=== PATIENT | male | born 1955 | race African-American/Black ===

== ENCOUNTER 2018-07-22 07:07 | Emergency (ER) | payer OTHER ==
[2018-07-22] MEDS ORDERED: Albuterol Sulfate 2.5 mg/3 ml Neb ONE (07:20)
[2018-07-22] MEDS ORDERED: Magnesium 2 GM/50 ML 2 GM in Premix Bag 1 BAG IVPB SCH (07:30)
[2018-07-22 07:39] LABS: Actual Bicarbonate (HCO3a) 25.9 mEq/L (22-28); Analyzer IN Cardio ER; Base Excess (BEa) 0.1 mEq/L (-2.0 to +3.0); CO2 Tension 46.2 mmHg (35.0-45.0); Calcium, Ionized 1.17 mmol/L (1.12-1.30); Carboxyhemoglobin (COHb) 0.5 gm% (0.0-3.0); Hemoglobin (Hb) 15.3 g/dL (14.0-18.0); O2 Tension (PaO2) 74.7 mmHg (> 80.0); Potassium - ABG Lab 3.78 mmol/L (3.70-5.30); pH, Arterial 7.37 (7.35-7.45)
[2018-07-22 07:40] LABS: Puncture Site RRA
[2018-07-22 07:49] LABS: #Basophils 0.1 thou/uL (0.0-0.2); #Eosinphils 0.2 thou/uL (0.0-0.7); #Lymphocytes 2.5 thou/uL (1.20-3.40); #Monocytes 0.9 thou/uL (0.11-0.59); %Basophils 0.6 % (0.0-1.0); %Eosinophils 2.7 % (0.0-10.0); %Monocytes 10.5 % (0.0-10.0); %Neutrophils 57.2 % (42.0-75.0); Hemoglobin 14.8 g/dL (14.0-18.0); Mean Corpuscular HGB CONC 32.2 g/dL (32.0-36.0); Mean Corpuscular Hemoglobin 29.4 pg (27.0-31.0); Mean Corpuscular Volume 91.2 fL (78.0-98.0); Mean Platelet Volume 8.3 fL (7.4-10.4); Platelet Count 215 thou/uL (130-400); RBC Distribution Width 12.7 % (11.5-14.5); Red Blood Cell (RBC) Count 5.03 mill/uL (4.70-6.10); White Blood Cell (WBC) Count 8.8 thou/uL (4.8-10.8)
[2018-07-22 08:09] LABS: ALT (SGPT) 12 U/L (8-55); AST (SGOT) 16 U/L (5-34); Albumin 4.1 g/dL (3.4-4.8); Alkaline Phosphatase 56 U/L (40-150); Anion Gap 12 mmol/L (10-20); BUN (Urea Nitrogen) 13 mg/dL (8.4-25.7); Bilirubin, Total 1.1 mg/dL (0.2-1.2); CK (CPK) 186 U/L (30-200); Calc. Creatinine Clearance 0 mL/min (70-130); Calcium 9.3 mg/dL (7.8-10.44); Carbon Dioxide 26 mmol/L (23-31); Chloride 104 mmol/L (98-107); Estimated GFR-MDRD 79; Globulin 2.9 g/dL (2.4-3.5); Glucose 105 mg/dL (80-115); Lipase 12 U/L (8-78); Sodium 138 mmol/L (136-145)
[2018-07-22 08:12] LABS: CKMB 2.7 ng/mL (0-6.6); Troponin I Less than 0.010 ng/mL (< 0.028)
--- NOTE | 2018-07-22 09:11 | RAD ---
CHEST UPRIGHT PORTABLE 1 VIEW: Date: 07/22/18 HISTORY: 63-year-old male with history of dyspnea and shortness of breath. History of emphysema and COPD. COMPARISON: 05/27/16. FINDINGS: There are very extensive bullous emphysema changes noted bilaterally with almost the entire left ches t being filled with a huge bullae from the apex down to the left hemidiaphragm with some depression o f the left hemidiaphragm, but this is stable from 05/27/16. Very large bullae in the right upper lobe . Interstitial and reticulonodular parenchymal changes in the right lower lobe, but this does not david ear significantly changed from 2016. Heart size is normal. IMPRESSION: Huge bullae essentially replacing the entire left chest with some hyperinflation, stable. Large bulla e in the right upper lobe as well as interstitial and reticulonodular parenchymal changes in the mid and lower right lung, but this is also stable from 05/27/16. Overall appearance has not significantly changed from the 05/27/16 study. POS: LIN
--- NOTE | 2018-07-25 13:49 | EKG ---
Test Reason : Blood Pressure : / mmHG Vent. Rate : 072 BPM Atrial Rate : 072 BPM P-R Int : 100 ms QRS Dur : 060 ms QT Int : 372 ms P-R-T Axes : 070 053 -78 degrees QTc Int : 407 ms Sinus rhythm with short NH with frequent , and consecutive Premature ventricular complexes and Fusion complexes T wave abnormality, consider inferior ischemia Abnormal ECG Confirmed by VIKKI BARRIOS, JENNIFER (12), state editor IMMANUEL ESPINOSA ([id number]) on 07/25/2018 1:48:23 PM Referred By: Confirmed By:JENNIFER FLOREZ MD
== END 2018-07-22 09:56 | disposition home or self-care (01) ==
LOC: ERS 07:07
DX: J44.1 Chronic obstructive pulmonary disease with (acute) exacerbation (principal); E87.6 Hypokalemia; F41.9 Anxiety disorder, unspecified; I10 Essential (primary) hypertension; Z87.891 Personal history of nicotine dependence
CPT/HCPCS: 36415; 71045; 80053; 82553; 82805; 83605; 83690; 83880; 84484; 85025; 87040; 93005; 94644; 96365; 96366; 96367; J1956; J7611; J7620

== ENCOUNTER 2018-08-02 11:09 | Outpatient (CLI) | payer OTHER ==
--- NOTE | 2018-08-02 13:46 | RAD ---
PA AND LATERAL CHEST: History: Dyspnea. Comparison: 05-25-17 FINDINGS: Heart size is within normal limits. Bullous emphysematous changes are seen. A large bulla basically i nvolves the entire left hemithorax and prominent bullous changes of the right upper lobe. These antonio es appear stable. IMPRESSION: Stable changes of bullous emphysema. POS: C
== END 2018-08-02 11:10 | disposition home or self-care (01) ==
LOC: RAD 11:09
PROVIDERS: ATTEND Internal Medicine Pulmonary Disease
DX: R06.00 Dyspnea, unspecified (principal)
CPT/HCPCS: 71046

== ENCOUNTER 2018-11-30 15:06 | Inpatient (IN) | payer OTHER ==
[2018-11-30] MEDS ORDERED: KETAMINE 100 MG/ML (5ML VIAL) ONE (15:12)
[2018-11-30] MEDS ORDERED: Albuterol Sulfate 2.5 mg/0.5 ml Neb ONE ×7 (15:28→15:29)
[2018-11-30 15:30] LABS: Hemoglobin 14.5 g/dL (14.0-18.0); Mean Corpuscular HGB CONC 30.9 g/dL (32.0-36.0); Mean Corpuscular Hemoglobin 29.4 pg (27.0-31.0); Mean Platelet Volume 7.4 fL (7.4-10.4); Platelet Count 381 thou/uL (130-400); RBC Distribution Width 12.5 % (11.5-14.5); Red Blood Cell (RBC) Count 4.93 mill/uL (4.70-6.10); White Blood Cell (WBC) Count 19.5 thou/uL (4.8-10.8)
[2018-11-30] MEDS ORDERED: Albuterol Sulfate 2.5 mg/3 ml Neb ONE (15:30)
[2018-11-30 15:40] LABS: Actual Bicarbonate (HCO3a) 20.7 mEq/L (22-28); Analyzer IN Cardio ER; Base Excess (BEa) -3.9 mEq/L (-2.0 to +3.0); CO2 Tension 36.7 mmHg (35.0-45.0); Calcium, Ionized 1.11 mmol/L (1.12-1.30); Carboxyhemoglobin (COHb) 0.5 gm% (0.0-3.0); Hemoglobin (Hb) 14.2 g/dL (14.0-18.0); O2 Tension (PaO2) 78.5 mmHg (> 80.0); Potassium - ABG Lab 4.03 mmol/L (3.70-5.30); Puncture Site RRA; pH, Arterial 7.37 (7.35-7.45)
[2018-11-30 15:41] LABS: ALV-art Gradient 232.125 (0-20)
[2018-11-30 15:42] LABS: Band 11 % (5-11); Lymphocytes 7 % (21-51); MDiff Complete? YES; Monocytes 4 % (0-10); Neutrophil 75 % (42-75); Platelet Morphology Comment Appears Adequate; RBC Morphology Normal; Reactive Lymphocytes 1 % (0-10)
[2018-11-30] MEDS ORDERED: cefTRIAXone\\ROCEPHIN 1 GM VIAL ONE (15:55)
[2018-11-30] MEDS ORDERED: Azithromycin 500 MG VIAL ONE (15:55)
[2018-11-30] MEDS ORDERED: Acetaminophen 500 MG TAB ONE (15:55)
--- NOTE | 2018-11-30 16:00 | RAD ---
RADIOGRAPH CHEST 1 VIEW: Date: 11/30/18 Time: 1539 HOURS HISTORY: 63-year-old male with dyspnea. COMPARISON: 08/02/18. FINDINGS: There is almost complete absence of left pulmonary parenchyma. Almost the entire left hemithoracic ca vity has been replaced by a single, extremely large bulla. This appears unchanged since 06/04/13. There is a very large bulla replacing the right upper and mid lung zones. There are mild nodular-inte rstitial infiltrates throughout the remaining right mid and lower lung zones. The nodularity appears slightly more prominent on the current study compared to 07/23/18. It is uncertain whether this is ac tual or technical. The cardiomediastinal silhouette is narrowed by the severe bullous disease. IMPRESSION: 1. Very severe paraseptal emphysema: extremely large left bulla occupying almost the entire left hem ithoracic cavity, with very little left pulmonary parenchymal tissue remaining; and very large bulla replacing the right upper and mid lung zones. 2. Questionable interval worsening of nodular interstitial densities in the remaining right mid and lower pulmonary tissue. Consider CT for further evaluation. JN [] POS: TPC
[2018-11-30 16:10] LABS: ALT (SGPT) 14 U/L (8-55); AST (SGOT) 16 U/L (5-34); Albumin 3.9 g/dL (3.4-4.8); Alkaline Phosphatase 56 U/L (40-150); Anion Gap 18 mmol/L (10-20); BUN (Urea Nitrogen) 14 mg/dL (8.4-25.7); Bilirubin, Total 1.3 mg/dL (0.2-1.2); CK (CPK) 99 U/L (30-200); Calc. Creatinine Clearance 0 mL/min (70-130); Carbon Dioxide 19 mmol/L (23-31); Chloride 102 mmol/L (98-107); Estimated GFR-MDRD 81; Globulin 3.5 g/dL (2.4-3.5); Glucose 134 mg/dL (80-115); Potassium 5.2 mmol/L (3.5-5.1); Protein, Total 7.4 g/dL (5.8-8.1); Sodium 134 mmol/L (136-145)
[2018-11-30] MEDS ORDERED: Ondansetron PF 4 MG/2 ML Vial IVP PRN (17:04)
[2018-11-30] MEDS ORDERED: Acetaminophen 325 MG TAB PO PRN (17:04)
[2018-11-30] MEDS ORDERED: Acetaminophen 650 MG Suppository PR PRN (17:04)
--- NOTE | 2018-11-30 18:37 | HP ---
PRIMARY CARE PROVIDER: Kosta Chang MD CHIEF COMPLAINT: Shortness of breath. HISTORY OF PRESENT ILLNESS: Mr. Stovall is a pleasant 63-year-old gentleman, who was seen at [facility] on November 30, 2018. He reports that over the last 2 or 3 weeks, he has been having flu-like symptoms, feeling weak. He also describes shortness of breath that has been progressively getting worse. He reports shortness of breath that is worse with exertion. Shortness of breath is accompanied by mucus. He also spiked a fever and had temperature of 100.4 degrees Fahrenheit today. EMS was called. The patient received Solu-Medrol, magnesium and nitrates and brought to the emergency room. His oxygen saturations were reportedly 87% on nebulizer. REVIEW OF SYSTEMS: All other systems reviewed and found to be negative. PAST MEDICAL HISTORY: Hypertension, chronic obstructive pulmonary disease, emphysema followed by Dr. Levi, sciatica, back problems, and borderline diabetes. PAST SURGICAL HISTORY: Extra digit removal from both hands and feet. PSYCHIATRIC HISTORY: Anxiety. SOCIAL HISTORY: The patient is a former smoker. He denies alcohol use or recreational drug use. FAMILY HISTORY: Reports several family members with coronary artery disease. CODE STATUS: I discussed his code status. He is full code. ALLERGIES: PENICILLIN, SULFA, AND TYLENOL NO.3. CURRENT MEDICATIONS: These will need to be reviewed. The patient does not recall the names of his medications. In the past, he was on amlodipine, Symbicort, Mucinex, prednisone, and albuterol sulfate. PHYSICAL EXAMINATION: GENERAL: On examination, Mr. Stovall is awake and alert, in mild respiratory distress, currently on BiPAP machine. VITAL SIGNS: Blood pressure is 96/63, pulse 110, respiratory rate 18, and oxygen saturation 94% on BiPAP. T-max in the emergency room was 101.9 degrees Fahrenheit rectally. EYES: No scleral icterus, no conjunctival pallor. ENT: Moist mucosal membranes. NECK: Supple, nontender, trachea is midline. RESPIRATORY: Accessory muscles of breathing are active. Chest wall movements are symmetric bilaterally. He has markedly diminished air entry bilaterally. CARDIOVASCULAR: S1 and S2 are heard, regular and tachycardic. Peripheral pulses palpable. ABDOMEN: Soft, nontender, bowel sounds heard, no hepatomegaly, no splenomegaly. NEUROLOGIC: Cranial nerves 2 through 12 are intact. SKIN: Dry flaky skin over both lower extremities. LYMPHATIC: No cervical lymphadenopathy. PSYCHIATRIC: The patient appears anxious, oriented to person, place, and time. LABORATORY DATA: Mr. Stovall' labs and investigations were reviewed. I reviewed his electrocardiogram, which shows sinus tachycardia, no ST changes to suggest an acute coronary syndrome. I also reviewed his chest x-ray, which shows large bilateral bullae. He has leukocytosis with 19,500 white cells, of which 75% are neutrophils, normal hemoglobin, normal platelet count. Hyponatremia with sodium 134, hyperkalemia with potassium 5.2, decreased carbon dioxide of 19, elevated lactic acid level of 4.6, elevated total bilirubin of 1.3, and normal troponin-I. BNP is normal. ASSESSMENT AND PLAN: Mr. Stovall is a pleasant 63-year-old gentleman, who was seen at [facility] on November 30, 2018. His problem list includes: 1. Acute on chronic hypoxic respiratory failure: Mr. Stovall is presenting with acute on chronic hypoxic respiratory failure, most likely secondary to chronic obstructive pulmonary disease exacerbation. An infectious component cannot be ruled out, given the fact that he also meets the criteria for sepsis. He will be admitted to the hospital for further management. He is currently on a BiPAP machine. Pulmonology Service will be consulted. 2. Sepsis: Mr. Stovall' presentation meets the criteria for sepsis, most likely respiratory source, either viral or bacterial. We will check influenza screen. We will also start him on empiric antibiotics in the form of ceftriaxone and azithromycin. 3. Hyponatremia: Mild, we will recheck. 4. Hyperkalemia: Mild, the patient will receive beta agonist nebulizers. We will recheck his potassium level. 5. Hypertension: We will resume home antihypertensives once clarified, we will monitor vital signs and titrate antihypertensives as needed. Many thanks for allowing me to participate in your patient's care. Please feel free to contact me with any questions or concerns. LEVEL OF RISK: High. LEVEL OF COMPLEXITY: High. Job ID: [id number]
[2018-11-30 19:36] LABS: CKMB 2.4 ng/mL (0-6.6)
[2018-11-30 19:39] LABS: Lactic Acid 2.9 mmol/L (0.5-2.2)
[2018-11-30 20:17] VITALS: BMI 23.6
[2018-11-30] MEDS: methylPREDNISolone Sod Succ 40 MG VIAL IVP SCH ×2 (20:19→23:52)
--- NOTE | 2018-11-30 23:20 | CON ---
DATE OF CONSULTATION: CONSULTING PHYSICIAN: Dr. Lemus. REASON FOR CONSULTATION: COPD exacerbation. HISTORY OF PRESENT ILLNESS: The patient is a 63-year-old male, who has a history of severe emphysema, oxygen and prednisone dependent. He became sick about 2 weeks ago. About a week ago, he got a prescription for antibiotics from his primary care doctor. Despite that, he has become progressively short of breath and he presented to the ER in acute on chronic respiratory failure. He was put on BiPAP and he feels much better. He is able to converse through the BiPAP mask without much difficulty. PAST MEDICAL HISTORY: 1. Hypertension. 2. COPD. PAST SURGICAL HISTORY: 1. Six digit removal of upper and lower extremities. 2. Colon polyp resection. SOCIAL HISTORY: Formerly smoked a half pack per day for many years, but quit about 7 years ago. Does not use illicit drugs currently, but does have a remote history of crack cocaine use. FAMILY MEDICAL HISTORY: Unremarkable. ALLERGIES: PENICILLIN AND SULFA. MEDICATIONS: Prior to admission he is taking, 1. Prednisone 10 mg a day. 2. Ciprofloxacin 500 mg twice daily. 3. Symbicort 160/4.5 two puffs twice daily. 4. Amlodipine 10 mg daily. 5. Albuterol as needed. REVIEW OF SYSTEMS: Remarkable for almost absent left lung for bullous lung disease and absent right upper lobe from bullous lung disease. He has chronic dyspnea. He has had no fever or chills. He has had cough which is slightly productive of yellow sputum. No nausea or vomiting. No chest pain. No hemoptysis, melena, hematochezia, hematuria, or dysuria. No numbness or tingling in extremities. PHYSICAL EXAMINATION: VITAL SIGNS: Heart rate in the 90s, blood pressure 94/46, respiratory rate 20, O2 saturation 95% on BiPAP. Currently, he is resting comfortably on BiPAP. HEENT: Pupils are reactive. Sclerae anicteric. Oropharynx clear. NECK: No JVD. LUNGS: He has a barrel chest. He has almost absent air movement on the left chest. He has diminished breath sounds in the right upper lobe. He has some wheezing in the right lower lobe. CARDIOVASCULAR: S1 and S2 regular without audible murmur. ABDOMEN: Soft, nontender, and nondistended. EXTREMITIES: No clubbing or cyanosis. He has trace edema in his pedal area. NEUROLOGIC: Grossly intact throughout. LABORATORY DATA: White blood cell count 19.5, hematocrit 46.8, and platelet count 381 with 75% neutrophils, 11% bands. PH is 7.37, pCO2 of 36, pO2 of 78 on BiPAP 12/6. Sodium 134, potassium 5.2, chloride 102, CO2 of 19, BUN 14, creatinine 1.1, glucose 134. Lactate was initially 4.6. BNP 19. His chest x-ray shows almost absent left lung except for bullous disease. He has a huge bullous lesion in the right upper lobe. He has compression atelectasis in the right lower lobe. ASSESSMENT: 1. Chronic obstructive pulmonary disease exacerbation. 2. Acute on chronic hypoxic respiratory failure. 3. Neuromuscular weakness. PLAN: I have reviewed the orders and agree with the plans for antibiotics, nebulization therapy, IV steroids, and the BiPAP. I will be happy to follow along with you. TIME SPENT: Total critical care time on this patient, 35 minutes. Job ID: [id number]
[2018-12-01 05:28] LABS: Anion Gap 16 mmol/L (10-20); BUN (Urea Nitrogen) 17 mg/dL (8.4-25.7); Calc. Creatinine Clearance 58 mL/min (70-130); Calcium 9.4 mg/dL (7.8-10.44); Carbon Dioxide 23 mmol/L (23-31); Chloride 102 mmol/L (98-107); Estimated GFR-MDRD 71; Glucose 173 mg/dL (80-115); Potassium 5.6 mmol/L (3.5-5.1); Sodium 135 mmol/L (136-145)
[2018-12-01 05:32] LABS: Band 24 % (5-11); Hemoglobin 13.7 g/dL (14.0-18.0); Lymphocytes 5 % (21-51); MDiff Complete? YES; Mean Corpuscular HGB CONC 31.3 g/dL (32.0-36.0); Mean Corpuscular Hemoglobin 30.1 pg (27.0-31.0); Mean Corpuscular Volume 96.2 fL (78.0-98.0); Mean Platelet Volume 7.9 fL (7.4-10.4); Monocytes 5 % (0-10); Neutrophil 66 % (42-75); Platelet Count 303 thou/uL (130-400); Platelet Morphology Comment Appears Adequate; RBC Distribution Width 12.5 % (11.5-14.5); RBC Morphology Normal; Red Blood Cell (RBC) Count 4.55 mill/uL (4.70-6.10); White Blood Cell (WBC) Count 18.8 thou/uL (4.8-10.8)
[2018-12-01] MEDS: methylPREDNISolone Sod Succ 40 MG VIAL IVP SCH ×3 (06:05→18:02)
[2018-12-01] MEDS: Enoxaparin Sodium 30 MG/0.3 ML SYRINGE SC SCH (08:57)
[2018-12-01] MEDS ORDERED: Acetaminophen 325 MG TAB PO PRN (09:53)
[2018-12-01] MEDS ORDERED: Acetaminophen 650 MG Suppository PR PRN (09:54)
--- NOTE | 2018-12-01 10:21 | PRG ---
DATE OF SERVICE: 12/01/2018 SUBJECTIVE: The patient is doing about the same. OBJECTIVE: VITAL SIGNS: Temperature is 98.7, pulse 95, blood pressure 134/81, and O2 saturation 94% on the BiPAP. HEENT: Unremarkable. NECK: No adenopathy. No JVD. No bruits. LUNGS: Almost absent breath sounds on the left, clear on the right base. CARDIAC: S1 and S2. Regular. ABDOMEN: Soft. EXTREMITIES: No edema. LABORATORY DATA: White blood cell count 18.8, hematocrit 43.8, and platelet count 303. Sodium 135, potassium 5.6, chloride 102, CO2 of 23, BUN 17, creatinine 1.2, and glucose 173. ASSESSMENT: 1. Acute hypoxic respiratory failure with chronic obstructive pulmonary disease exacerbation requiring mechanical ventilation. 2. Mild hyperkalemia. PLAN: 1. The patient will continue antibiotics, steroids, and nebulization treatments. 2. Try to wean off BiPAP as tolerated. 3. Add mucolytic therapy. Job ID: [id number]
[2018-12-01] MEDS ORDERED: Insulin Regular 300 UNITS/3 ML VIAL IVP SCH (14:15)
[2018-12-01] MEDS ORDERED: Dextrose 50% Abboject 50 ML SYRINGE SLOW IVP SCH (14:30)
[2018-12-01] MEDS: cefTRIAXone\\ROCEPHIN 1 GM in Sodium Chloride 0.9% 100 ML IVPB SCH (15:15)
[2018-12-01] MEDS: Azithromycin 500 MG in Sodium Chloride 0.9% 250 ML 250 ML IVPB SCH (18:02)
--- NOTE | 2018-12-01 18:18 | PDOC.PN ---
- Subjective Encounter Start Date: 12/01/18 Encounter Start Time: 11:40 Pt seen for followup re: acute on chronic hypoxic respiratory failure. says he feels slightly better. - Objective Resuscitation Status - Order Detail: 11/30/18 17:04 Resuscitation Status Routine Resuscitation Status: FULL: Full Resuscitation Discussed with: melvin STOKES Reviewed: Yes Vital Signs & Weight: Vital Signs (12 hours) Temp Pulse Resp Pulse Ox 12/01/18 15:02 94 12/01/18 15:01 99 23 H 95 12/01/18 11:29 79 12/01/18 11:26 97 30 H 94 L 12/01/18 11:00 98.7 F 12/01/18 08:51 96 12/01/18 08:30 89 95 12/01/18 08:29 88 18 95 12/01/18 07:23 96 12/01/18 07:00 98.7 F Weight Weight 151 lb Most Recent Monitor Data Heart Rate from ECG 97 NIBP 131/105 NIBP BP-Mean 113 Respiration from ECG 18 SpO2 89 I&O: 11/30/18 12/01/18 12/02/18 06:59 06:59 06:59 Intake Total 15 350 Output Total 575 850 Balance -560 -500 Result Diagrams: 12/01/18 04:17 12/01/18 04:17 Additional Labs: Accuchecks 12/01/18 10:29 POC Glucose 161 H EKG Reviewed by me: Yes (Tele: NSR) Phys Exam - Physical Examination Constitutional: NAD HEENT: moist MMs, sclera anicteric, oral pharynx no lesions, 2+ tonsils Neck: no nodes, no JVD, supple, full ROM Respiratory: wheezing present Cardiovascular: RRR, no rub S1, S2 Gastrointestinal: soft, non-tender, no distention, positive bowel sounds Neurological: moves all 4 limbs Psychiatric: normal affect, A&O x 3 Dx/Plan (1) Acute on chronic respiratory failure with hypoxia Code(s): J96.21 - ACUTE AND CHRONIC RESPIRATORY FAILURE WITH HYPOXIA Status: Acute Comment: secondary to COPD exacerbation, improving (2) COPD exacerbation Code(s): J44.1 - CHRONIC OBSTRUCTIVE PULMONARY DISEASE W (ACUTE) EXACERBATION Status: Acute Comment: continue oxygen, steroids, bronchodilators and antibiotics. (3) Hyperkalemia Code(s): E87.5 - HYPERKALEMIA Status: Acute Comment: administer kayexalate, humulin R (followed by D50 amp) (4) Hyponatremia Code(s): E87.1 - HYPO-OSMOLALITY AND HYPONATREMIA Status: Acute Comment: mild, improving (5) Sepsis Code(s): A41.9 - SEPSIS, UNSPECIFIED ORGANISM Status: Ruled-out Comment: no clear infectious etiology - Plan * . Review of Systems - Review of Systems Constitutional: negative: fever, chills, sweats, weakness, malaise Respiratory: SOB with Excertion, Wheezing. negative: Cough, Shortness of Breath , Pleuritic Pain Cardiovascular: negative: chest pain, palpitations, orthopnea, paroxysmal nocturnal dyspnea, edema, light headedness Gastrointestinal: negative: Nausea, Vomiting, Abdominal Pain, Diarrhea, Constipation, Melena, Hematochezia Genitourinary: negative: Dysuria, Frequency, Incontinence, Hematuria, Retention - Medications/Allergies Allergies/Adverse Reactions: Allergies Allergy/AdvReac Type Severity Reaction Status Date / Time acetaminophen Allergy Verified 11/30/18 20:12 [From Tylenol-Codeine #3] codeine Allergy Verified 11/30/18 20:12 [From Tylenol-Codeine #3] Penicillins Allergy Verified 08/26/13 16:31 quetiapine [From Seroquel] Allergy Verified 11/30/18 20:12 Sulfa (Sulfonamide Allergy Verified 08/26/13 16:31 Antibiotics) Medications: Current Medications Acetaminophen (Tylenol) 650 mg PO Q4H PRN PRN Reason: Headache/Fever/Mild Pain (1-3) Acetaminophen (Tylenol) 650 mg NH Q4H PRN PRN Reason: Headache/Fever/Mild Pain (1-3) Albuterol/Ipratropium (Duoneb) 3 ml NEB [id number] SUJEY Last Admin: 12/01/18 15:01 Dose: 3 ml Enoxaparin Sodium (Lovenox) 30 mg SC 0900 [facility] Last Admin: 12/01/18 08:57 Dose: 30 mg Guaifenesin/Dextromethorphan (Mucinex Dm) 1 tab PO Q12HR SUJEY Azithromycin 500 mg/ Sodium (Chloride) 250 mls @ 250 mls/hr IVPB 1700 [facility] Last Admin: 12/01/18 18:02 Dose: Not Given Ceftriaxone Sodium 1 gm/ (Sodium Chloride) 100 mls @ 200 mls/hr IVPB 1600 [facility] Last Admin: 12/01/18 15:15 Dose: 100 mls Methylprednisolone Sodium Succinate (Solu-Medrol) 40 mg IVP Q6HR SUJEY Last Admin: 12/01/18 18:02 Dose: Not Given Ondansetron HCl (Zofran) 4 mg IVP Q6H PRN PRN Reason: Nausea/Vomiting Pantoprazole Sodium (Protonix) 40 mg PO DAILY [facility] Last Admin: 12/01/18 08:57 Dose: 40 mg Sodium Chloride (Flush - Normal Saline) 10 ml IVF Q12HR [facility] Last Admin: 12/01/18 08:59 Dose: 10 ml Sodium Chloride (Flush - Normal Saline) 10 ml IVF PRN PRN PRN Reason: Saline Flush Last Admin: 12/01/18 06:05 Dose: 10 ml
[2018-12-01] MEDS: guaiFENesin/DM ER PO SCH (20:38)
[2018-12-02] MEDS: methylPREDNISolone Sod Succ 40 MG VIAL IVP SCH ×5 (00:38→23:39)
[2018-12-02 05:38] LABS: #Lymphocytes 0.5 thou/uL (1.20-3.40); #Monocytes 1.1 thou/uL (0.11-0.59); #Neutrophils 16.3 thou/uL (1.40-6.50); %Basophils 0.1 % (0.0-1.0); %Eosinophils 0.1 % (0.0-10.0); %Neutrophils 90.9 % (42.0-75.0); Hemoglobin 12.4 g/dL (14.0-18.0); Mean Corpuscular HGB CONC 31.5 g/dL (32.0-36.0); Mean Corpuscular Hemoglobin 30.1 pg (27.0-31.0); Mean Corpuscular Volume 95.6 fL (78.0-98.0); Mean Platelet Volume 7.8 fL (7.4-10.4); Platelet Count 304 thou/uL (130-400); RBC Distribution Width 12.6 % (11.5-14.5); Red Blood Cell (RBC) Count 4.12 mill/uL (4.70-6.10); White Blood Cell (WBC) Count 17.9 thou/uL (4.8-10.8)
[2018-12-02 05:59] LABS: Anion Gap 15 mmol/L (10-20); BUN (Urea Nitrogen) 22 mg/dL (8.4-25.7); Calc. Creatinine Clearance 68 mL/min (70-130); Calcium 9.7 mg/dL (7.8-10.44); Carbon Dioxide 25 mmol/L (23-31); Chloride 102 mmol/L (98-107); Estimated GFR-MDRD 85; Glucose 135 mg/dL (80-115); Potassium 4.6 mmol/L (3.5-5.1); Sodium 137 mmol/L (136-145)
[2018-12-02] MEDS: Enoxaparin Sodium 30 MG/0.3 ML SYRINGE SC SCH (07:59)
[2018-12-02] MEDS: guaiFENesin/DM ER PO SCH ×2 (08:00→20:56)
--- NOTE | 2018-12-02 10:49 | PRG ---
DATE OF SERVICE: 12/02/2018 SUBEJCTIVE: The patient is still requiring BiPAP most of the time. Does not feel much different, still feels like mucus is stuck in the back of his throat. OBJECTIVE: VITAL SIGNS: On exam, his temperature is 99.2, pulse 90, and blood pressure 122/93. Intake for 24 hours 710, output 1585. HEENT: Unremarkable. NECK: No JVD. CHEST: Clear anteriorly on the right. Diminished breath sounds globally on the left. ABDOMEN: Soft and nontender. EXTREMITIES: No edema. LABORATORY DATA: White blood cell count 17.9, hematocrit 39.4, and platelet count 304. Sodium 137, potassium 4.6, chloride 102, CO2 of 25, BUN 22, creatinine 1.0 and glucose 135. ASSESSMENT: 1. Chronic hypoxic/hypercapnic respiratory failure, requiring mechanical ventilation. 2. Resolved hyperkalemia. PLAN: I have turned his BiPAP pressures down. Encouraged him to come off the mask some. He was put on mucolytic therapy yesterday. He will continue on antibiotic steroids and nebulization treatments. I will go ahead and reduce his steroid dose. Job ID: [id number]
[2018-12-02] MEDS: Bacteriostatic Water 30 ML VIAL FS PRN ×2 (13:11→17:38)
--- NOTE | 2018-12-02 13:21 | PDOC.PN ---
- Subjective Encounter Start Date: 12/02/18 Encounter Start Time: 10:20 Pt seen for followup re: acute on chronic hypoxic respiratory failure. Says he feels better. Keeps looking at the monitor to see where his SaO2 is. - Objective Resuscitation Status - Order Detail: 11/30/18 17:04 Resuscitation Status Routine Resuscitation Status: FULL: Full Resuscitation Discussed with: patient DIVYA Reviewed: Yes Vital Signs & Weight: Vital Signs (12 hours) Temp Pulse Resp Pulse Ox 12/02/18 11:21 93 12/02/18 11:20 104 H 18 92 L 12/02/18 09:12 24 H 92 L 12/02/18 08:11 104 H 12/02/18 08:08 98 22 H 94 L 12/02/18 08:00 92 L 12/02/18 04:00 99.2 F 12/02/18 02:04 105 H 20 96 Weight Weight 151 lb Most Recent Monitor Data Heart Rate from ECG 102 NIBP 152/79 NIBP BP-Mean 103 Respiration from ECG 17 SpO2 91 I&O: 12/01/18 12/02/18 12/03/18 06:59 06:59 06:59 Intake Total 15 710 240 Output Total 575 1585 Balance -560 -875 240 Result Diagrams: 12/02/18 04:44 12/02/18 04:44 EKG Reviewed by me: Yes (Tele: NSR) Phys Exam - Physical Examination Constitutional: NAD HEENT: moist MMs, sclera anicteric, oral pharynx no lesions, 2+ tonsils Neck: no nodes, no JVD, supple, full ROM Respiratory: clear to auscultation bilateral Cardiovascular: RRR, no rub S1, S2 Gastrointestinal: soft, non-tender, no distention, positive bowel sounds Neurological: moves all 4 limbs Psychiatric: normal affect, A&O x 3 Dx/Plan (1) Acute on chronic respiratory failure with hypoxia Code(s): J96.21 - ACUTE AND CHRONIC RESPIRATORY FAILURE WITH HYPOXIA Status: Acute Comment: improving (2) COPD exacerbation Code(s): J44.1 - CHRONIC OBSTRUCTIVE PULMONARY DISEASE W (ACUTE) EXACERBATION Status: Acute Comment: on oxygen, steroids, bronchodilators and antibiotics. (3) Hyponatremia Code(s): E87.1 - HYPO-OSMOLALITY AND HYPONATREMIA Status: Resolved (4) Sepsis Code(s): A41.9 - SEPSIS, UNSPECIFIED ORGANISM Status: Ruled-out (5) Hyperkalemia Code(s): E87.5 - HYPERKALEMIA Status: Resolved - Plan * . Review of Systems - Review of Systems Constitutional: negative: fever, chills, sweats, weakness, malaise Respiratory: Cough, Dry, SOB with Excertion. negative: Shortness of Breath, Pleuritic Pain, Wheezing Cardiovascular: negative: chest pain, palpitations, orthopnea, paroxysmal nocturnal dyspnea, edema, light headedness Gastrointestinal: negative: Nausea, Vomiting, Abdominal Pain, Diarrhea, Constipation, Melena, Hematochezia Genitourinary: negative: Dysuria, Frequency, Incontinence, Hematuria, Retention Skin: negative: Rash, Lesions, Eduardo, Bruising - Medications/Allergies Allergies/Adverse Reactions: Allergies Allergy/AdvReac Type Severity Reaction Status Date / Time acetaminophen Allergy Verified 11/30/18 20:12 [From Tylenol-Codeine #3] codeine Allergy Verified 11/30/18 20:12 [From Tylenol-Codeine #3] Penicillins Allergy Verified 08/26/13 16:31 quetiapine [From Seroquel] Allergy Verified 11/30/18 20:12 Sulfa (Sulfonamide Allergy Verified 08/26/13 16:31 Antibiotics) Medications: Current Medications Acetaminophen (Tylenol) 650 mg PO Q4H PRN PRN Reason: Headache/Fever/Mild Pain (1-3) Acetaminophen (Tylenol) 650 mg DE Q4H PRN PRN Reason: Headache/Fever/Mild Pain (1-3) Albuterol/Ipratropium (Duoneb) 3 ml NEB [id number] [facility] Last Admin: 12/02/18 11:20 Dose: 3 ml Enoxaparin Sodium (Lovenox) 30 mg SC 0900 [facility] Last Admin: 12/02/18 07:59 Dose: 30 mg Guaifenesin/Dextromethorphan (Mucinex Dm) 1 tab PO Q12HR [facility] Last Admin: 12/02/18 08:00 Dose: 1 tab Azithromycin 500 mg/ Sodium (Chloride) 250 mls @ 250 mls/hr IVPB 1700 [facility] Last Admin: 12/01/18 18:02 Dose: Not Given Ceftriaxone Sodium 1 gm/ (Sodium Chloride) 100 mls @ 200 mls/hr IVPB 1600 [facility] Last Admin: 12/01/18 15:15 Dose: 100 mls Methylprednisolone Sodium Succinate (Solu-Medrol) 20 mg IVP Q6HR [facility] Last Admin: 12/02/18 13:09 Dose: 20 mg Ondansetron HCl (Zofran) 4 mg IVP Q6H PRN PRN Reason: Nausea/Vomiting Pantoprazole Sodium (Protonix) 40 mg PO DAILY [facility] Last Admin: 12/02/18 08:00 Dose: 40 mg Sodium Chloride (Flush - Normal Saline) 10 ml IVF Q12HR [facility] Last Admin: 12/02/18 08:00 Dose: 10 ml Sodium Chloride (Flush - Normal Saline) 10 ml IVF PRN PRN PRN Reason: Saline Flush Last Admin: 12/02/18 05:59 Dose: 10 ml Sterile Water (Bacteriostatic Water) 1 ml FS PRN PRN PRN Reason: RECONSTITUTION Last Admin: 12/02/18 13:11 Dose: 1 ml
[2018-12-02] MEDS ORDERED: ALPRAZolam 0.25 MG TAB PO SCH (15:30)
[2018-12-02] MEDS ORDERED: hydrALAZINE 20 MG/ML VIAL SLOW IVP SCH (16:30)
[2018-12-02] MEDS: cefTRIAXone\\ROCEPHIN 1 GM in Sodium Chloride 0.9% 100 ML IVPB SCH (16:31)
[2018-12-02] MEDS: Azithromycin 500 MG in Sodium Chloride 0.9% 250 ML 250 ML IVPB SCH (17:35)
[2018-12-02] MEDS: Lorazepam 2 MG/ML VIAL SLOW IVP PRN (23:40)
[2018-12-03 05:01] LABS: Anion Gap 18 mmol/L (10-20); BUN (Urea Nitrogen) 22 mg/dL (8.4-25.7); Calc. Creatinine Clearance 72 mL/min (70-130); Carbon Dioxide 23 mmol/L (23-31); Chloride 103 mmol/L (98-107); Estimated GFR-MDRD Greater than 90; Glucose 131 mg/dL (80-115); Potassium 5.7 mmol/L (3.5-5.1); Sodium 138 mmol/L (136-145)
[2018-12-03] MEDS: methylPREDNISolone Sod Succ 40 MG VIAL IVP SCH ×3 (06:45→17:33)
[2018-12-03 07:09] LABS: Hemoglobin 13.6 g/dL (14.0-18.0); Mean Corpuscular HGB CONC 31.2 g/dL (32.0-36.0); Mean Corpuscular Hemoglobin 30.1 pg (27.0-31.0); Mean Corpuscular Volume 96.5 fL (78.0-98.0); Mean Platelet Volume 8.1 fL (7.4-10.4); Platelet Count 288 thou/uL (130-400); RBC Distribution Width 12.6 % (11.5-14.5); Red Blood Cell (RBC) Count 4.52 mill/uL (4.70-6.10); White Blood Cell (WBC) Count 16.1 thou/uL (4.8-10.8)
[2018-12-03] MEDS: Amlodipine 5 MG TAB PO SCH (08:46)
[2018-12-03] MEDS: Enoxaparin Sodium 30 MG/0.3 ML SYRINGE SC SCH (08:47)
--- NOTE | 2018-12-03 09:04 | PRG ---
DATE OF SERVICE: 12/03/2018 OBJECTIVE: GENERAL: This morning, he is awake, alert, responsive, still short of breath. VITAL SIGNS: His sats are 100% on 3 L, pulse 113, blood pressure 154/87, and respirations 20. CHEST: Decreased breath sounds. No wheezing. CARDIAC: Normal S1, S2. ABDOMEN: No masses. LABORATORY DATA: White count 16,000. H and H are unremarkable.. IMPRESSION: 1. Extensive bilateral bullous disease, left lung pretty much occupied large bleb. 2. Former smoker. 3. Depression. PLAN: Unfortunately, tough situation. He has had multiple discussions in the past regarding surgery to do a bullectomy. I am not sure he will tolerate the operation. He may have a persistent air leak post surgery. At this stage, continue nebs, steroids, antibiotics, supportive care. We will follow. Job ID: [id number] MTDD
[2018-12-03] MEDS: guaiFENesin/DM ER PO SCH ×2 (09:17→20:25)
[2018-12-03 09:49] LABS: Band 10 % (5-11); Lymphocytes 2 % (21-51); MDiff Complete? YES; Monocytes 3 % (0-10); Neutrophil 85 % (42-75); RBC Morphology Normal
[2018-12-03] MEDS: Lorazepam 2 MG/ML VIAL SLOW IVP PRN (15:36)
[2018-12-03] MEDS: cefTRIAXone\\ROCEPHIN 1 GM in Sodium Chloride 0.9% 100 ML IVPB SCH (16:18)
[2018-12-03] MEDS: Azithromycin 500 MG in Sodium Chloride 0.9% 250 ML 250 ML IVPB SCH (16:54)
[2018-12-03] MEDS: Mometasone/Formoterol 120 PUFF INHALER INH SCH (18:37)
[2018-12-04] MEDS: methylPREDNISolone Sod Succ 40 MG VIAL IVP SCH ×4 (00:54→17:25)
[2018-12-04] MEDS: Lorazepam 2 MG/ML VIAL SLOW IVP PRN (04:11)
[2018-12-04 05:41] LABS: Anion Gap 16 mmol/L (10-20); BUN (Urea Nitrogen) 24 mg/dL (8.4-25.7); Calc. Creatinine Clearance 75 mL/min (70-130); Calcium 10.1 mg/dL (7.8-10.44); Carbon Dioxide 28 mmol/L (23-31); Chloride 99 mmol/L (98-107); Estimated GFR-MDRD Greater than 90; Glucose 155 mg/dL (80-115); Potassium 4.8 mmol/L (3.5-5.1); Sodium 138 mmol/L (136-145)
[2018-12-04] MEDS: Mometasone/Formoterol 120 PUFF INHALER INH SCH ×2 (07:22→18:19)
[2018-12-04] MEDS: Amlodipine 5 MG TAB PO SCH (08:58)
[2018-12-04] MEDS: Enoxaparin Sodium 30 MG/0.3 ML SYRINGE SC SCH (08:58)
[2018-12-04] MEDS: guaiFENesin/DM ER PO SCH ×2 (09:34→21:13)
--- NOTE | 2018-12-04 10:21 | PRG ---
DATE OF SERVICE: 12/04/2018 OBJECTIVE: VITAL SIGNS: This morning, he is off the BiPAP. He is still short of breath, but his sats are 93% on 2 L, pulse 105, blood pressure 128/80. CHEST: Decreased breath sounds. No wheezing. CARDIAC: Normal S1 and S2. No gallops. ABDOMEN: No masses. LABORATORY DATA: Lytes are normal. IMPRESSION: Chronic obstructive pulmonary disease, extensive bullous disease with severe deconditioning. PLAN: Low dose Xanax has been initiated p.r.n. Discontinue all his antibiotics, no reason to suspect any pneumonia. Discussed with family ongoing care. Job ID: [id number]
[2018-12-04] MEDS: ALPRAZolam 0.25 MG TAB PO PRN ×2 (16:28→21:17)
[2018-12-04] MEDS: Cefuroxime Axetil 250 MG TAB PO SCH (21:12)
[2018-12-05] MEDS: methylPREDNISolone Sod Succ 40 MG VIAL IVP SCH ×2 (00:43→06:36)
[2018-12-05] MEDS: Mometasone/Formoterol 120 PUFF INHALER INH SCH ×2 (06:50→18:34)
--- NOTE | 2018-12-05 08:55 | PRG ---
DATE OF SERVICE: 12/05/2018 SUBJECTIVE: This morning, he is doing much better. OBJECTIVE: GENERAL: Awake, alert, and responsive, in no distress. VITAL SIGNS: Did not have the BiPAP on last night. Saturations 100% on 2 L, blood pressure 120/104, temperature 98, and respiratory rate 19. CHEST: Decreased breath sounds. No wheezing. CARDIAC: Normal S1 and S2. No gallops. ABDOMEN: No masses. CULTURE: Blood culture, gram-positive rods, contamination. IMPRESSION: Chronic obstructive pulmonary disease exacerbation, bronchitis, and severe bullous disease. PLAN: Transferred out of the MICU to a nonmonitored bed. Continue PT, supportive care, and p.o. medication. Job ID: [id number]
[2018-12-05] MEDS: Enoxaparin Sodium 30 MG/0.3 ML SYRINGE SC SCH (09:09)
[2018-12-05] MEDS: Amlodipine 5 MG TAB PO SCH (09:09)
[2018-12-05] MEDS: predniSONE 20 MG TAB PO SCH ×2 (09:09→21:46)
[2018-12-05] MEDS: Cefuroxime Axetil 250 MG TAB PO SCH ×2 (09:11→21:47)
[2018-12-05] MEDS: guaiFENesin/DM ER PO SCH ×2 (09:49→21:46)
[2018-12-06] MEDS: ALPRAZolam 0.25 MG TAB PO PRN (00:11)
[2018-12-06] MEDS: Mometasone/Formoterol 120 PUFF INHALER INH SCH ×2 (06:48→18:52)
[2018-12-06] MEDS ORDERED: Clopidogrel Bisulfate 75 MG TAB ONE (08:05)
[2018-12-06] MEDS: Amlodipine 5 MG TAB PO SCH (08:55)
[2018-12-06] MEDS: Enoxaparin Sodium 30 MG/0.3 ML SYRINGE SC SCH (08:56)
[2018-12-06] MEDS: predniSONE 20 MG TAB PO SCH ×2 (08:56→20:53)
[2018-12-06] MEDS: guaiFENesin/DM ER PO SCH ×2 (08:56→20:52)
--- NOTE | 2018-12-06 09:04 | PRG ---
DATE OF SERVICE: 12/06/2018 SUBJECTIVE: This morning, he is better. He is less short of breath. He said he is choking some mucus. OBJECTIVE: VITAL SIGNS: Temperature 98, pulse 109, respiratory rate 18, blood pressure 141/75. CHEST: Decreased breath sounds. No wheezing. CARDIAC: Normal S1 and S2. No gallops. ABDOMEN: No masses. IMPRESSION: Chronic obstructive pulmonary disease exacerbation, bronchitis, and anxiety. Much improved. Discharge home any time. Follow up in the office as needed. Job ID: [id number]
[2018-12-06] MEDS: Cefuroxime Axetil 250 MG TAB PO SCH ×2 (11:19→20:53)
[2018-12-07] MEDS: ALPRAZolam 0.25 MG TAB PO PRN ×2 (02:14→14:51)
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
[2018-12-07] MEDS: predniSONE 20 MG TAB PO SCH ×2 (09:44→20:31)
[2018-12-07] MEDS: Amlodipine 5 MG TAB PO SCH (09:44)
[2018-12-07] MEDS: guaiFENesin/DM ER PO SCH ×2 (09:45→20:30)
[2018-12-07] MEDS: Cefuroxime Axetil 250 MG TAB PO SCH ×2 (09:48→20:30)
[2018-12-07] MEDS: Enoxaparin Sodium 30 MG/0.3 ML SYRINGE SC SCH (09:48)
[2018-12-07] MEDS: Mometasone/Formoterol 120 PUFF INHALER INH SCH ×2 (11:33→18:47)
[2018-12-08] MEDS: Amlodipine 5 MG TAB PO SCH (08:15)
[2018-12-08] MEDS: predniSONE 20 MG TAB PO SCH (08:15)
[2018-12-08] MEDS: guaiFENesin/DM ER PO SCH ×2 (08:15→20:49)
[2018-12-08] MEDS: Enoxaparin Sodium 30 MG/0.3 ML SYRINGE SC SCH (08:15)
[2018-12-08] MEDS: Mometasone/Formoterol 120 PUFF INHALER INH SCH ×2 (08:59→18:34)
[2018-12-08] MEDS: Cefuroxime Axetil 250 MG TAB PO SCH ×2 (10:13→20:49)
[2018-12-08] MEDS ORDERED: Furosemide 20 MG/2 ML VIAL SLOW IVP SCH (20:00)
[2018-12-08] MEDS: ALPRAZolam 0.25 MG TAB PO PRN (20:49)
--- NOTE | 2018-12-08 21:14 | PRG ---
DATE OF SERVICE: 12/08/2018 SERVICE: Pulmonary Medicine. INTERVAL HISTORY: The patient is doing fine from respiratory standpoint. Breathing comfortably. He indicates this is the best . He was having a ride issue. As such, and go home today. He thinks the weather is going to be bad for the next 5 days. As such, he does not think that he should be getting out of the hospital before of next week. Otherwise, he is basically back to his usual state of health. He continues to have a little bit of cough, but is bringing up a scanty amount of sputum. PHYSICAL EXAMINATION: VITAL SIGNS: Afebrile, pulse 99, blood pressure 125/67, respirations 19, and saturation 93% on 2 L nasal cannula. GENERAL: Patient is awake and alert, in no apparent distress. LUNGS: Excellent air entry. There is really not a prolonged expiratory phase. I do appreciate crackles dependently. HEART: Normal rate regular. ABDOMEN: Soft, nontender, and nondistended. Bowel sounds are positive. MUSCULOSKELETAL: No cyanosis or clubbing. There is 2+ pitting in the bilateral lower extremities. NEUROLOGIC: Grossly nonfocal. ASSESSMENT: 1. Acute hypoxic respiratory failure, resolved. 2. Chronic obstructive pulmonary disease with acute exacerbation. DISCUSSION AND PLAN: The patient is doing fine. At this point, he is a little touch volume overloaded. I will provide him with a dose of Lasix today and tomorrow morning. I will repeat laboratories since it has been sometime since we have had them. I would like to see that white blood cell count trending downward. Pulmonary Critical Care will continue to follow along. Job ID: [id number]
[2018-12-09] MEDS ORDERED: predniSONE 20 MG TAB PO SCH (08:00)
[2018-12-09] MEDS: Amlodipine 5 MG TAB PO SCH (08:21)
[2018-12-09] MEDS: guaiFENesin/DM ER PO SCH (08:21)
[2018-12-09] MEDS: Cefuroxime Axetil 250 MG TAB PO SCH (08:23)
[2018-12-09] MEDS: Enoxaparin Sodium 30 MG/0.3 ML SYRINGE SC SCH (09:00)
[2018-12-09] MEDS ORDERED: Furosemide 20 MG/2 ML VIAL SLOW IVP SCH (09:00)
[2018-12-09] MEDS: Mometasone/Formoterol 120 PUFF INHALER INH SCH (10:17)
[2018-12-09 17:18] VITALS: BP 120/74; TEMP 97.9
--- NOTE | 2018-12-09 19:16 | PRG ---
DATE OF SERVICE: 12/09/2018 SERVICE: Pulmonary Medicine. INTERVAL HISTORY: The patient is doing fine from respiratory standpoint. Breathing comfortably. Otherwise, there has been no interval change to his condition. Denies any current chest pain, fevers, or chills. His breathing is essentially back to baseline. PHYSICAL EXAMINATION: VITAL SIGNS: Afebrile, pulse 100, blood pressure 120/74, respirations 20, and saturation 94% on 2 L nasal cannula. GENERAL: The patient is awake and alert, in no apparent distress. LUNGS: Decent air entry with a prolonged expiratory phase. The crackles are much improved. No rhonchi or wheezing is appreciated. HEART: Normal rate, regular. ABDOMEN: Soft, nontender, and nondistended. Bowel sounds are positive. MUSCULOSKELETAL: No cyanosis or clubbing. No pitting in the bilateral lower extremities. NEUROLOGIC: Grossly nonfocal. ASSESSMENT: 1. Chronic obstructive pulmonary disease with acute exacerbation, resolved. 2. Acute hypoxic respiratory failure, resolved. DISCUSSION AND PLAN: The patient is doing fine from respiratory standpoint. At this point, he is essentially back to baseline. From a purely respiratory perspective, he is stable for transition out of the hospital. If he remains in-house, Pulmonary will continue to follow. Job ID: [id number]
--- NOTE | 2018-12-10 14:38 | DIS ---
DATE OF ADMISSION: 11/30/2018 DATE OF DISCHARGE: 12/09/2018 ADMITTING DIAGNOSES: 1. Acute on chronic hypoxic respiratory failure due to chronic obstructive pulmonary disease, possible sepsis. 2. Hyponatremia, mild. 3. Hyperkalemia, mild. 4. Hypertension. FINAL DIAGNOSES: 1. Acute on chronic respiratory failure, hypoxic, secondary to chronic obstructive pulmonary disease. 2. Severe bullous emphysema. 3. Neuromuscular weakness. 4. Hypertension. 5. No evidence of sepsis. BRIEF SUMMARY OF HOSPITAL COURSE: Mr. Stovall is a 63-year-old male admitted because of shortness of breath. The patient has respiratory failure secondary to COPD. Initially, the patient was on BiPAP and Pulmonary consult was done. The patient is seen by Dr. Madden, who felt the patient has respiratory failure secondary to COPD exacerbation. He is to continue neb treatment as well as steroids. The patient eventually improved in the next few days, though he still kept complaining of mucus and Chest x-ray showed severe paraseptal emphysema, extremely large left bulla that involved almost all of the left hemithoracic cavity. There is also a very large bulla in right upper and mid lung zones. The patient remained stable for few more days. Continue neb treatments and Solu-Medrol, later it was changed to prednisone. His IV antibiotics changed to p.o. In view of improvement, the patient is being discharged after he was cleared by pulmonary. PHYSICAL EXAMINATION: GENERAL: At the time of discharge, he was stable. VITAL SIGNS: Stable. LUNGS: Clear HEART: Heart sounds regular. ABDOMEN: Soft, nontender. Bowel sounds present. DISCHARGE MEDICATIONS: Include; 1. DuoNebs q.i.d. 2. Symbicort 160/4.5 one puff b.i.d. 3. Albuterol inhaler p.r.n. 4. Aspirin 81 mg daily. 5. Tramadol P.r.n. 6. Amlodipine 5 mg daily. 7. Ceftin 250 b.i.d. for 1 week. 8. Mucinex 600 mg b.i.d. for 10 days. 9. Xanax 0.25 b.i.d. p.r.n. 10. Prednisone 20 mg b.i.d. for 1 week, 10 mg b.i.d. for 1 week, then 10 mg daily or 1 week. FOLLOWUP: The patient will be followed up in the office in 2 weeks. Job ID: [id number] MTDD
== END 2018-12-09 17:03 | disposition home or self-care (01) | DRG 189 ==
LOC: ERS 15:06 → IMCU/EMU 20:01 → T4-B 12-05 20:04
PROVIDERS: ADMIT Internal Medicine; ATTEND Internal Medicine
PROC: 5A09457 Assistance with Respiratory Ventilation, 24-96 Consecutive Hours, Continuous Positive Airway Pressure (ICD-10-PCS; principal; 2018-11-30)
DX: J96.21 Acute and chronic respiratory failure with hypoxia (principal); E87.1 Hypo-osmolality and hyponatremia; J44.1 Chronic obstructive pulmonary disease with (acute) exacerbation; I10 Essential (primary) hypertension; E87.5 Hyperkalemia; M54.30 Sciatica, unspecified side; R73.03 Prediabetes; Z59.1 Inadequate housing; F32.9 Major depressive disorder, single episode, unspecified; F41.9 Anxiety disorder, unspecified; Z87.891 Personal history of nicotine dependence; Z88.0 Allergy status to penicillin; Z88.2 Allergy status to sulfonamides; Z88.8 Allergy status to other drugs, medicaments and biological substances
CPT/HCPCS: 36415; 36416; 71045; 80048; 80053; 82550; 82553; 82805; 83605; 83880; 84484; 85025; 87040; 87804; 93005; 94640; 94644; 94660; 94760; 96365; J0360; J0456; J0696; J1650; J1815; J1940; J2060; J2920; J7050; J7611; J7620

== ENCOUNTER 2018-12-10 15:42 | Inpatient (IN) | payer OTHER ==
[2018-12-10] MEDS ORDERED: Ipratropium Bromide 2.5 ml Neb ONE (15:49)
[2018-12-10] MEDS ORDERED: Magnesium 2 GM/50 ML BAG (IN WATER) ONE (15:51)
[2018-12-10] MEDS ORDERED: Albuterol Sulfate 2.5 mg/3 ml Neb ONE (15:52)
[2018-12-10 15:58] LABS: Analyzer IN Cardio ER; Base Excess (BEa) 1.7 mEq/L (-2.0 to +3.0); CO2 Tension 55.7 mmHg (35.0-45.0); Calcium, Ionized 1.22 mmol/L (1.12-1.30); Carboxyhemoglobin (COHb) 0.5 gm% (0.0-3.0); O2 Tension (PaO2) 78.5 mmHg (> 80.0); Potassium - ABG Lab 4.81 mmol/L (3.70-5.30); pH, Arterial 7.34 (7.35-7.45)
[2018-12-10 15:59] LABS: ALV-art Gradient 65.775 (0-20); Puncture Site LRA
[2018-12-10 16:05] LABS: #Eosinphils 0.1 thou/uL (0.0-0.7); #Lymphocytes 3.1 thou/uL (1.20-3.40); #Monocytes 1.3 thou/uL (0.11-0.59); %Basophils 0.1 % (0.0-1.0); %Eosinophils 0.6 % (0.0-10.0); %Lymphocytes 16.5 % (21.0-51.0); %Monocytes 6.9 % (0.0-10.0); %Neutrophils 75.9 % (42.0-75.0); Hemoglobin 15.1 g/dL (14.0-18.0); Mean Corpuscular HGB CONC 31.3 g/dL (32.0-36.0); Mean Corpuscular Volume 95.8 fL (78.0-98.0); Platelet Count 328 thou/uL (130-400); Red Blood Cell (RBC) Count 5.04 mill/uL (4.70-6.10); White Blood Cell (WBC) Count 18.5 thou/uL (4.8-10.8)
[2018-12-10 16:27] LABS: ALT (SGPT) 42 U/L (8-55); AST (SGOT) 29 U/L (5-34); Albumin 3.9 g/dL (3.4-4.8); Alkaline Phosphatase 65 U/L (40-150); Anion Gap 20 mmol/L (10-20); BUN (Urea Nitrogen) 28 mg/dL (8.4-25.7); Bilirubin, Total 0.7 mg/dL (0.2-1.2); Calc. Creatinine Clearance 0 mL/min (70-130); Calcium 9.9 mg/dL (7.8-10.44); Carbon Dioxide 25 mmol/L (23-31); Chloride 99 mmol/L (98-107); Estimated GFR-MDRD 67; Globulin 3.8 g/dL (2.4-3.5); Glucose 210 mg/dL (80-115); Lipase 20 U/L (8-78); Protein, Total 7.7 g/dL (5.8-8.1); Sodium 139 mmol/L (136-145)
[2018-12-10] MEDS ORDERED: Lorazepam 2 MG/ML VIAL ONE (16:31)
[2018-12-10] MEDS ORDERED: MEROPENEM 1 GM/50 ML BAG IVPB SCH (17:00)
--- NOTE | 2018-12-10 17:03 | RAD ---
CHEST 1 VIEW: Date: 12/10/18 HISTORY: Shortness of breath. COMPARISON: Radiograph dated 11/30/18. FINDINGS: There are multifocal air space opacities within the right lower lobe. 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 There is rightward displacement of the cardiac silhouette, although the patient is rotated. No acute osseous abnormality. IMPRESSION: 1. Similar appearance multifocal air space opacity right lower lobe concerning for infection. Follow -up after treatment recommended. 2. 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 3. Although there appears to be rightward shift of the mediastinum, the patient is rotated. If there is concern for a tension pneumothorax, repeat 2 views of chest would be recommended. POS: [facility]
[2018-12-11 00:12] VITALS: BMI 22.6
[2018-12-11] MEDS ORDERED: Bacteriostatic Water 30 ML VIAL FS PRN (00:48)
[2018-12-11] MEDS ORDERED: Preparation H HC 1% Cream 26 GM TUBE TOP PRN (00:54)
--- NOTE | 2018-12-11 01:29 | HP ---
CHIEF COMPLAINT: Shortness of breath and cough HISTORY OF PRESENT ILLNESS: Mr. Stovall is a 63-year-old male with a severe bullous emphysema who was discharged recently, came back because of unable to breathe and there is some respiratory distress. The patient complained of mucus in the airway, unable to get out the mucus out. The patient was supposed to be on neb treatments and Mucinex. It is not clear whether he has used any neb treatments at home. The patient unable to give proper history because he is too lethargic and looks like he is sedated with Ativan in the ER. According to EMS, the patient complained of mucus in the area and the EMS suctioned and the patient reported some relief after that. According to them, he was saturating and O2 saturation was 90%. The patient given 125 mg of Solu-Medrol and DuoNebs on the way to the hospital, but in the ER, patient was hypoxic, saturation dropping, he was put on CPAP and the patient received Ativan 1 mg IV push, DuoNebs, and meropenem 1 g IV push also given in the ER, vancomycin 1 g was given too. The patient currently looks sedated. PAST MEDICAL HISTORY: 1. Severe bullous disease. 2. COPD. 3. Hypertension. 4. Chronic back problems. PAST SURGICAL HISTORY: Status post IR removal of extra digit, both hands. CURRENT MEDICATIONS: The patient is supposed to be on prednisone in tapering doses, he is supposed to be on 20 mg b.i.d.; DuoNebs q.i.d.; Mucinex 600 mg b.i.d.; amlodipine 10 mg daily; Xanax 0.5 b.i.d. p.r.n.; Symbicort inhaler 160/4.5 two puffs b.i.d. ALLERGIES: PENICILLIN ALLERGY, SULFA, AND TYLENOL NO. 3. FAMILY HISTORY: Nothing contributory. SOCIAL HISTORY: The patient does not smoke anymore. He used to smoke in the past. No history of alcohol use or drug abuse. REVIEW OF SYSTEMS: Unable to obtain because the patient looks sedated. PHYSICAL EXAMINATION: GENERAL: The patient is not responsive and looks sedated. VITAL SIGNS: Temperature 98; pulse initially 140, now 100; respirations 20; blood pressure 130/60, O2 saturation 100% on BiPAP. HEENT: Head is normocephalic and atraumatic. Pupils are equal and reactive. Nasopharynx is pale and dry. NECK: Supple. No JVD. LUNGS: Breath sounds diminished bilaterally. Expiratory wheeze present. HEART: S1 and S2 regular. ABDOMEN: Soft. No distention. No tenderness. No organomegaly. Normal bowel sounds present. RECTAL: No symptoms. CENTRAL NERVOUS SYSTEM: No focal deficits. LABORATORY DATA: CBC shows WBC 18,000, hemoglobin 15, hematocrit 48, platelets 328. ABGs showed pH 7.34, pCO2 of 58, PO2 of 78, saturation 93%. Metabolic panel; sodium 139, potassium 5, chloride 99, CO2 of 25, BUN , creatinine 1.3, glucose 210. Chest x-ray, severe bullous disease bilaterally. Left lung, there is large bulla occupying whole of the left lung and right side of right upper lobe is covered with bulla. ASSESSMENT: 1. Acute on chronic respiratory failure. 2. Severe bullous emphysema. 3. Metabolic encephalopathy. 4. Hypertension. 5. History of back pain. PLAN: 1. Admit to [facility]. 2. Solu-Medrol 40 IVP q.6 hours. 3. DuoNebs 1 unit q.4 hours. 4. Mucinex 600 mg p.o. b.i.d. 5. Suction p.r.n. q.8 hours. 6. Continue home medications. 7. Pulmonary consult. 8. Meropenem 1 g IV piggyback q.6 hours. 9. BiPAP. Patient is full code. Job ID: [id number] [facility]
[2018-12-11] MEDS: MEROPENEM 1 GM/50 ML 1 GM in Premix Bag 1 BAG IVPB SCH ×3 (01:51→14:56)
[2018-12-11] MEDS ORDERED: MEROPENEM 1 GM/50 ML 1 GM in Premix Bag 1 BAG IVPB SCH (06:00)
[2018-12-11] MEDS: methylPREDNISolone Sod Succ 40 MG VIAL IVP SCH ×3 (06:00→17:49)
[2018-12-11] MEDS: guaiFENesin ER 600 MG TAB PO SCH ×2 (08:56→20:41)
[2018-12-11] MEDS: Amlodipine 5 MG TAB PO SCH (08:57)
[2018-12-11] MEDS: Cefuroxime Axetil 250 MG TAB PO SCH (20:41)
--- NOTE | 2018-12-11 23:14 | CON ---
DATE OF CONSULTATION: 12/11/2018 HISTORY OF PRESENT ILLNESS: Mr. Stovall is a pleasant 63-year-old male, seen by Dr. Levi as an outpatient and most of the doctors in our group last time he was in the hospital. He has very severe chronic obstructive pulmonary disease. He has one of the most impressive chest x-rays I have ever seen. His left lung has one big bullous air space and his right upper lobe has one big bullous air space. He apparently only has perfusion to it looks like his right middle and right lower lobe reviewing his chest x-ray. He presented with shortness of breath and was admitted by Dr. Chang. We were consulted because of his presence in the intermediate care unit. He says he is feeling a little better. His only complaint is that he cannot get the mucus out of the proximal aspect of his windpipe. He asked me for a longer suction device to see if he could push it down and suck the mucus out. PAST MEDICAL HISTORY: Remarkable for 1. Hypertension. 2. History of multiple digit removals in the past. MEDICATIONS: Prior to admission, 1. He is on prednisone. 2. Nebulizer treatments. 3. Mucinex. 4. Amlodipine. 5. Xanax. 6. Symbicort. FAMILY HISTORY: Negative for lung disease in early age. ALLERGIES: HE REPORTS PENICILLIN, SULFA, AND CODEINE ALLERGY. SOCIAL HISTORY: He is a nonsmoker, nondrinker, obviously was a heavy smoker in the past. REVIEW OF SYSTEMS: A 10-point review of systems completed, otherwise negative. His only complaint again is the thick mucus in his throat. PHYSICAL EXAMINATION: GENERAL: He sits on the side of the bed, he wanted a longer tubing because he did not want to like go with a suction catheter. VITAL SIGNS: He is afebrile. Heart rate is in the 90s, blood pressure 122/60 this evening. HEENT: Pupils are equal. Sclerae are anicteric. He is extremely thin and barrel-chested. EYES: clear. LUNGS: Remarkable for almost absent breath sounds bilaterally. HEART: Regular rhythm. Distant S1 and S2. No gallop. ABDOMEN: Soft. EXTREMITIES: Without edema. LABORATORY DATA: White count 18.5, hemoglobin 15, platelets 328. Electrolytes are unremarkable. BUN 28, creatinine 1.3. IMPRESSION: 1. Chronic obstructive pulmonary disease exacerbation. 2. Near end-stage chronic obstructive pulmonary disease with chronic respiratory failure with hypoxemia. We will be happy to follow with the other physicians caring for him. Dr. Levi will be notified of his admission. This is a 50 minute consult, with greater than 50% of time spent on unit coordinating care. Job ID: [id number] MTDD
[2018-12-12] MEDS: methylPREDNISolone Sod Succ 40 MG VIAL IVP SCH ×5 (00:15→23:37)
[2018-12-12 05:29] LABS: Anion Gap 16 mmol/L (10-20); BUN (Urea Nitrogen) 32 mg/dL (8.4-25.7); Calc. Creatinine Clearance 61 mL/min (70-130); Carbon Dioxide 30 mmol/L (23-31); Chloride 97 mmol/L (98-107); Estimated GFR-MDRD 82; Glucose 142 mg/dL (80-115); Potassium 4.9 mmol/L (3.5-5.1); Sodium 138 mmol/L (136-145)
[2018-12-12 06:08] LABS: #Lymphocytes 0.5 thou/uL (1.20-3.40); #Monocytes 0.5 thou/uL (0.11-0.59); #Neutrophils 12.3 thou/uL (1.40-6.50); %Basophils 0.1 % (0.0-1.0); %Eosinophils 0.3 % (0.0-10.0); %Lymphocytes 3.9 % (21.0-51.0); %Monocytes 3.6 % (0.0-10.0); %Neutrophils 92.2 % (42.0-75.0); Hemoglobin 14.6 g/dL (14.0-18.0); Mean Corpuscular HGB CONC 31.3 g/dL (32.0-36.0); Mean Corpuscular Volume 95.8 fL (78.0-98.0); Mean Platelet Volume 8.1 fL (7.4-10.4); Platelet Count 232 thou/uL (130-400); RBC Morphology Normal; Red Blood Cell (RBC) Count 4.85 mill/uL (4.70-6.10); White Blood Cell (WBC) Count 13.3 thou/uL (4.8-10.8)
[2018-12-12] MEDS: guaiFENesin ER 600 MG TAB PO SCH ×2 (08:41→20:41)
[2018-12-12] MEDS: Cefuroxime Axetil 250 MG TAB PO SCH ×2 (08:41→20:41)
[2018-12-12] MEDS: Amlodipine 5 MG TAB PO SCH (08:41)
[2018-12-12] MEDS ORDERED: Sodium Chloride 0.65% Nasal 44 ML BOT EA NARE PRN (10:01)
--- NOTE | 2018-12-12 10:39 | PRG ---
DATE OF SERVICE: 12/12/2018 SUBJECTIVE: Mr. Siddharth Stovall is a 63-year-old gentleman who just recently discharged from the hospital, presented with respiratory distress. He said he has some mucus stuck in the back of his throat, postnasal drip symptoms. He was placed on CPAP, his sats were 53% apparently on room air. As per the EMS, given neb treatments steroids. He is now in MICU this morning, he is somewhat better. Still has some postnasal drip symptoms, cough. OBJECTIVE: VITAL SIGNS: Sats are 94% on 2 L, temperature 98, blood pressure 102/88, respirations 20. CHEST: Decreased breath sounds. Prolonged expiration. CARDIAC: Sinus tach. ABDOMEN: No masses. LABORATORY DATA: White count 13,000, H and H 14 and 46, platelet count is unremarkable. Lytes are normal. IMPRESSION: 1. End-stage chronic obstructive pulmonary disease. 2. Extensive bilateral bullous disease exacerbation. 3. Bronchitis. PLAN: At this stage, unfortunately nothing additional to offer. We will continue neb treatments, steroids antibiotics as prescribed. Job ID: [id number]
[2018-12-12] MEDS: Mometasone/Formoterol 120 PUFF INHALER INH SCH (18:54)
[2018-12-13] MEDS: methylPREDNISolone Sod Succ 40 MG VIAL IVP SCH (05:23)
[2018-12-13] MEDS: Mometasone/Formoterol 120 PUFF INHALER INH SCH ×2 (08:08→18:43)
--- NOTE | 2018-12-13 09:23 | PRG ---
DATE OF SERVICE: 12/13/2018 SUBJECTIVE: Siddharth Stovall is a 63-year-old gentleman. This morning, he is better, he is less short of breath, less coughing. He ate his breakfast, sitting on the side of the bed and talking nonstop with his family. I's and O's have been good. OBJECTIVE: VITAL SIGNS: Saturations 91 on 3 L, pulse 117, respiratory rate 27, blood pressure 133/89. CHEST: Prolonged expiration without any wheezing. CARDIAC: Normal S1 and S2. No gallops. ABDOMEN: No masses. IMPRESSION: Severe chronic obstructive pulmonary disease, end stage; extensive bullous disease. PLAN: Switch him over to oral prednisone. Hopefully, he will be stable. Could be discharged home in the next 24 to 48 hours. Job ID: [id number]
[2018-12-13] MEDS: ALPRAZolam 0.5 MG TAB PO PRN (10:12)
[2018-12-13] MEDS: Amlodipine 5 MG TAB PO SCH (10:13)
[2018-12-13] MEDS: predniSONE 20 MG TAB PO SCH ×2 (10:13→20:27)
[2018-12-13] MEDS: guaiFENesin ER 600 MG TAB PO SCH ×2 (10:13→20:27)
[2018-12-13] MEDS: Cefuroxime Axetil 250 MG TAB PO SCH ×2 (10:13→20:27)
[2018-12-14] MEDS: Mometasone/Formoterol 120 PUFF INHALER INH SCH ×2 (07:47→18:29)
[2018-12-14] MEDS: Amlodipine 5 MG TAB PO SCH (09:12)
[2018-12-14] MEDS: guaiFENesin ER 600 MG TAB PO SCH ×2 (09:12→21:35)
[2018-12-14] MEDS: predniSONE 20 MG TAB PO SCH ×2 (09:12→21:34)
[2018-12-14] MEDS: Cefuroxime Axetil 250 MG TAB PO SCH ×2 (09:13→21:34)
[2018-12-14] MEDS: ALPRAZolam 0.5 MG TAB PO PRN (09:14)
--- NOTE | 2018-12-14 09:14 | PRG ---
DATE OF SERVICE: 12/14/2018 SUBJECTIVE: This morning, he is awake, alert, responsive. OBJECTIVE: VITAL SIGNS: Sats are 90% on 3 L, respiratory rate 26, pulse 99, blood pressure 130/80. HEENT: Still complaining of some throat sensation. I do not know what is talking about, but I do not see anything in the back of his throat. CHEST: Decreased breath sounds. No wheezing. CARDIAC: Normal S1, S2. No gallops. ABDOMEN: No masses. IMPRESSION: End-stage chronic obstructive pulmonary disease, extensive bullous disease, anxiety. PLAN: Transferred to medical floor. DISPOSITION: Home in the next 24 to 48 hours. Job ID: [id number]
[2018-12-15] MEDS: Mometasone/Formoterol 120 PUFF INHALER INH SCH ×2 (06:59→19:25)
[2018-12-15] MEDS: Amlodipine 5 MG TAB PO SCH (08:46)
[2018-12-15] MEDS: guaiFENesin ER 600 MG TAB PO SCH ×2 (08:46→19:53)
[2018-12-15] MEDS: predniSONE 20 MG TAB PO SCH ×2 (08:46→19:53)
[2018-12-15] MEDS: Cefuroxime Axetil 250 MG TAB PO SCH ×2 (08:47→19:53)
--- NOTE | 2018-12-15 11:46 | PRG ---
DATE OF SERVICE: 12/15/2018 SUBJECTIVE: This morning, he is still complaining of posterior pharynx secretions. OBJECTIVE: VITAL SIGNS: Saturations are 98% on 3 L, temperature 98, blood pressure 138/66. CHEST: Decreased breath sounds. No wheezing. CARDIAC: Normal S1 and S2. No gallops. ABDOMEN: No masses. IMPRESSION: End-stage chronic obstructive pulmonary disease, bullous disease, secretions. PLAN: Per Pulmonary, home any time. Job ID: [id number]
[2018-12-15] MEDS: ALPRAZolam 0.5 MG TAB PO PRN (19:53)
[2018-12-16] MEDS: Mometasone/Formoterol 120 PUFF INHALER INH SCH ×2 (07:36→19:35)
[2018-12-16] MEDS: predniSONE 20 MG TAB PO SCH ×2 (08:33→20:00)
[2018-12-16] MEDS: Amlodipine 5 MG TAB PO SCH (08:33)
[2018-12-16] MEDS: Cefuroxime Axetil 250 MG TAB PO SCH ×2 (08:33→20:00)
[2018-12-16] MEDS: guaiFENesin ER 600 MG TAB PO SCH ×2 (08:34→19:59)
--- NOTE | 2018-12-16 12:19 | PRG ---
DATE OF SERVICE: 12/16/2018 SUBJECTIVE: This morning, he is still slightly short of breath. OBJECTIVE: VITAL SIGNS: His sats are 95% on 3 L, pulse 120, blood pressure 130/80, . CHEST: Decreased breath sounds. No wheezing. CARDIAC: Normal S1 and S2. No gallops. ABDOMEN: No masses. IMPRESSION: Severe chronic obstructive pulmonary disease, bilateral bullous disease. PLAN: Continue present treatment. Disposition as per primary care physician. Job ID: [id number]
[2018-12-17] MEDS: guaiFENesin ER 600 MG TAB PO SCH ×2 (08:00→19:48)
[2018-12-17] MEDS: Amlodipine 5 MG TAB PO SCH (08:00)
[2018-12-17] MEDS: predniSONE 20 MG TAB PO SCH ×2 (08:01→19:48)
[2018-12-17] MEDS: Cefuroxime Axetil 250 MG TAB PO SCH ×2 (08:04→19:47)
[2018-12-17] MEDS: Mometasone/Formoterol 120 PUFF INHALER INH SCH ×2 (08:32→18:29)
--- NOTE | 2018-12-17 11:08 | PRG ---
DATE OF SERVICE: 12/17/2018 SUBJECTIVE: Siddharth Stovall this morning appears to be at his baseline. OBJECTIVE: VITAL SIGNS: Saturations are 97% on 3 L, respiratory rate 14, temperature 98, blood pressure . CHEST: Decreased breath sounds. No wheezing. CARDIAC: Normal S1, S2. No gallops. ABDOMEN: No masses. IMPRESSION: Extensive bullous disease, chronic obstructive pulmonary disease, respiratory failure. PLAN: Disposition home. Continue present treatment. Job ID: [id number]
[2018-12-18] MEDS: Mometasone/Formoterol 120 PUFF INHALER INH SCH ×2 (06:25→18:58)
[2018-12-18] MEDS: Amlodipine 5 MG TAB PO SCH (07:59)
[2018-12-18] MEDS: predniSONE 20 MG TAB PO SCH ×2 (07:59→21:00)
[2018-12-18] MEDS: guaiFENesin ER 600 MG TAB PO SCH ×2 (07:59→21:00)
[2018-12-18] MEDS: Cefuroxime Axetil 250 MG TAB PO SCH ×2 (07:59→21:00)
--- NOTE | 2018-12-18 11:34 | PRG ---
DATE OF SERVICE: 12/18/2018 SUBJECTIVE: This morning, he is eating better. He is apparently going to go home with suction device. OBJECTIVE: VITAL SIGNS: Temperature 98, pulse 99, respiratory rate 16, sats 97%, and blood pressure 120/75. CHEST: Decreased breath sounds. No wheezing. CARDIAC: Normal S1 and S2. No gallops. ABDOMEN: No masses. IMPRESSION: Chronic obstructive pulmonary disease, bronchitis, major anxiety. PLAN: Continue present treatment. Taper steroids over several weeks. Job ID: [id number]
[2018-12-19] MEDS: Mometasone/Formoterol 120 PUFF INHALER INH SCH ×2 (06:18→20:26)
[2018-12-19] MEDS: predniSONE 20 MG TAB PO SCH ×2 (07:45→20:19)
[2018-12-19] MEDS: Amlodipine 5 MG TAB PO SCH (07:45)
[2018-12-19] MEDS: guaiFENesin ER 600 MG TAB PO SCH ×2 (07:45→20:19)
[2018-12-19] MEDS: Cefuroxime Axetil 250 MG TAB PO SCH ×2 (08:29→20:19)
[2018-12-20] MEDS: Mometasone/Formoterol 120 PUFF INHALER INH SCH ×2 (05:57→19:31)
[2018-12-20] MEDS: guaiFENesin ER 600 MG TAB PO SCH ×2 (07:41→20:40)
[2018-12-20] MEDS: predniSONE 20 MG TAB PO SCH ×2 (07:41→20:40)
[2018-12-20] MEDS: Cefuroxime Axetil 250 MG TAB PO SCH ×2 (07:41→20:40)
[2018-12-20] MEDS: Amlodipine 5 MG TAB PO SCH (07:41)
[2018-12-20 19:27] VITALS: TEMP 98.2
[2018-12-21] MEDS: Mometasone/Formoterol 120 PUFF INHALER INH SCH (07:41)
[2018-12-21 07:50] VITALS: BP 114/71
[2018-12-21] MEDS: predniSONE 20 MG TAB PO SCH (08:55)
[2018-12-21] MEDS: Amlodipine 5 MG TAB PO SCH (08:55)
[2018-12-21] MEDS: Cefuroxime Axetil 250 MG TAB PO SCH (08:55)
[2018-12-21] MEDS: guaiFENesin ER 600 MG TAB PO SCH (08:55)
== END 2018-12-21 15:54 | disposition home or self-care (01) | DRG 189 ==
LOC: ERS 15:42 → ERHOLD 18:15 → IMCU/EMU 12-11 00:02 → T4-A 12-14 18:33
PROVIDERS: ADMIT Internal Medicine; ATTEND Internal Medicine
DX: J96.21 Acute and chronic respiratory failure with hypoxia (principal); G93.41 Metabolic encephalopathy; F41.9 Anxiety disorder, unspecified; J43.9 Emphysema, unspecified; I10 Essential (primary) hypertension; M54.30 Sciatica, unspecified side; Z88.5 Allergy status to narcotic agent; Z88.0 Allergy status to penicillin; Z88.2 Allergy status to sulfonamides; Z88.6 Allergy status to analgesic agent; Z88.8 Allergy status to other drugs, medicaments and biological substances; Z79.52 Long term (current) use of systemic steroids; Z79.899 Other long term (current) drug therapy; Z87.891 Personal history of nicotine dependence; Z79.51 Long term (current) use of inhaled steroids
CPT/HCPCS: 36415; 71045; 80048; 80053; 82805; 83690; 83880; 84484; 85025; 85730; 90471; 90686; 93005; 94640; 94660; 96365; 96367; 96375; G0008; J2060; J2185; J2920; J3370; J3475; J7611; J7620

== ENCOUNTER 2018-12-21 16:53 | Inpatient (IN) | payer OTHER ==
--- NOTE | 2018-12-21 17:29 | RAD ---
AP VIEW CHEST: 12/21/18 HISTORY: Discharge, shortness of breath, unable to sit back. History of C-PAP. AP view chest is obtained on 12/21/18. COMPARISON: Comparison made to previous exam from 12/10/18. AP view chest again demonstrates a huge left hemithorax bulla filling the entire left hemithorax. The re is also a large right upper lobe bulla occupying much of the right upper hemithorax. Radiographic appearance of the chest is stable and unchanged since the previous exam from 12/10/18 and stable going back several years to previous CT back to April 2015. No significant interval changes noted since the previous radiograph from 11 days earlier. IMPRESSION: 1. Huge left iza thorax bulla essentially replacing much of the left hemithorax. 2. Large right upper aspect hemithorax bulla. POS: [facility]
[2018-12-21 17:31] LABS: #Basophils 0.1 thou/uL (0.0-0.2); #Eosinphils 0.2 thou/uL (0.0-0.7); #Lymphocytes 2.5 thou/uL (1.20-3.40); #Neutrophils 13.6 thou/uL (1.40-6.50); %Basophils 0.4 % (0.0-1.0); %Eosinophils 0.9 % (0.0-10.0); %Lymphocytes 14.4 % (21.0-51.0); %Monocytes 5.8 % (0.0-10.0); %Neutrophils 78.5 % (42.0-75.0); Hemoglobin 14.3 g/dL (14.0-18.0); Mean Corpuscular HGB CONC 31.2 g/dL (32.0-36.0); Mean Corpuscular Hemoglobin 29.8 pg (27.0-31.0); Mean Corpuscular Volume 95.3 fL (78.0-98.0); Mean Platelet Volume 7.4 fL (7.4-10.4); Platelet Count 199 thou/uL (130-400); RBC Distribution Width 13.5 % (11.5-14.5); Red Blood Cell (RBC) Count 4.79 mill/uL (4.70-6.10); White Blood Cell (WBC) Count 17.4 thou/uL (4.8-10.8)
[2018-12-21 17:52] LABS: ALT (SGPT) 127 U/L (8-55); AST (SGOT) 157 U/L (5-34); Albumin 3.9 g/dL (3.4-4.8); Alkaline Phosphatase 75 U/L (40-150); Anion Gap 16 mmol/L (10-20); BUN (Urea Nitrogen) 30 mg/dL (8.4-25.7); Bilirubin, Total 0.9 mg/dL (0.2-1.2); Calc. Creatinine Clearance 0 mL/min (70-130); Carbon Dioxide 25 mmol/L (23-31); Chloride 102 mmol/L (98-107); Estimated GFR-MDRD 79; Glucose 199 mg/dL (80-115); Potassium 5.7 mmol/L (3.5-5.1); Protein, Total 6.9 g/dL (5.8-8.1); Sodium 137 mmol/L (136-145)
[2018-12-21] MEDS ORDERED: traMADol HCl 50 MG TAB PO PRN (21:40)
[2018-12-22] MEDS: guaiFENesin ER 600 MG TAB PO SCH ×2 (08:42→20:22)
[2018-12-22] MEDS: Amlodipine 5 MG TAB PO SCH (08:43)
[2018-12-22] MEDS: predniSONE 20 MG TAB PO SCH ×2 (08:43→20:22)
[2018-12-22] MEDS: Aspirin 81 mg Enteric Coated Tablet PO SCH (08:43)
[2018-12-22 11:41] LABS: #Eosinphils 0.1 thou/uL (0.0-0.7); #Monocytes 0.9 thou/uL (0.11-0.59); #Neutrophils 13.3 thou/uL (1.40-6.50); %Basophils 0.1 % (0.0-1.0); %Eosinophils 0.7 % (0.0-10.0); %Lymphocytes 6.7 % (21.0-51.0); %Monocytes 5.9 % (0.0-10.0); %Neutrophils 86.6 % (42.0-75.0); Hemoglobin 13.9 g/dL (14.0-18.0); Mean Corpuscular HGB CONC 31.5 g/dL (32.0-36.0); Mean Corpuscular Hemoglobin 29.6 pg (27.0-31.0); Mean Corpuscular Volume 94.1 fL (78.0-98.0); Platelet Count 157 thou/uL (130-400); RBC Distribution Width 13.3 % (11.5-14.5); Red Blood Cell (RBC) Count 4.71 mill/uL (4.70-6.10); White Blood Cell (WBC) Count 15.4 thou/uL (4.8-10.8)
[2018-12-22 12:01] LABS: Anion Gap 15 mmol/L (10-20); BUN (Urea Nitrogen) 31 mg/dL (8.4-25.7); Calc. Creatinine Clearance 65 mL/min (70-130); Carbon Dioxide 31 mmol/L (23-31); Chloride 97 mmol/L (98-107); Estimated GFR-MDRD Greater than 90; Glucose 118 mg/dL (80-115); Potassium 4.9 mmol/L (3.5-5.1); Sodium 138 mmol/L (136-145)
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
[2018-12-23 08:17] LABS: ALT (SGPT) 91 U/L (8-55); AST (SGOT) 30 U/L (5-34); Albumin 3.8 g/dL (3.4-4.8); Alkaline Phosphatase 66 U/L (40-150); Anion Gap 14 mmol/L (10-20); BUN (Urea Nitrogen) 28 mg/dL (8.4-25.7); Bilirubin, Total 0.8 mg/dL (0.2-1.2); Calc. Creatinine Clearance 62 mL/min (70-130); Calcium 9.6 mg/dL (7.8-10.44); Carbon Dioxide 33 mmol/L (23-31); Chloride 97 mmol/L (98-107); Estimated GFR-MDRD 90; Glucose 102 mg/dL (80-115); Potassium 4.5 mmol/L (3.5-5.1); Protein, Total 6.8 g/dL (5.8-8.1); Sodium 139 mmol/L (136-145)
[2018-12-23] MEDS: Aspirin 81 mg Enteric Coated Tablet PO SCH (08:41)
[2018-12-23] MEDS: guaiFENesin ER 600 MG TAB PO SCH ×2 (08:41→20:44)
[2018-12-23] MEDS: predniSONE 20 MG TAB PO SCH ×2 (08:41→20:43)
[2018-12-23] MEDS: Amlodipine 5 MG TAB PO SCH (08:41)
[2018-12-23] MEDS: Mometasone/Formoterol 120 PUFF INHALER INH SCH (18:34)
[2018-12-23] MEDS: Preparation H Ointment 28 GM TUBE TOP SCH (20:43)
[2018-12-23] MEDS ORDERED: Fluticasone Propionate Nasal Spray 16 gm Bottle NASAL SCH (20:45)
[2018-12-24] MEDS: Mometasone/Formoterol 120 PUFF INHALER INH SCH ×2 (06:11→18:35)
[2018-12-24] MEDS: Aspirin 81 mg Enteric Coated Tablet PO SCH (08:44)
[2018-12-24] MEDS: guaiFENesin ER 600 MG TAB PO SCH ×2 (08:44→20:52)
[2018-12-24] MEDS: Amlodipine 5 MG TAB PO SCH (08:44)
[2018-12-24] MEDS: predniSONE 20 MG TAB PO SCH ×2 (08:45→20:52)
[2018-12-24] MEDS: Fluticasone Propionate Nasal Spray 16 gm Bottle NASAL SCH (08:45)
[2018-12-24] MEDS: Preparation H Ointment 28 GM TUBE TOP SCH ×2 (08:45→20:53)
[2018-12-24] MEDS: Cefuroxime Axetil 250 MG TAB PO SCH (20:52)
[2018-12-25] MEDS: Mometasone/Formoterol 120 PUFF INHALER INH SCH ×2 (06:13→18:21)
[2018-12-25] MEDS: Aspirin 81 mg Enteric Coated Tablet PO SCH (08:28)
[2018-12-25] MEDS: Amlodipine 5 MG TAB PO SCH (08:28)
[2018-12-25] MEDS: Fluticasone Propionate Nasal Spray 16 gm Bottle NASAL SCH (08:29)
[2018-12-25] MEDS: guaiFENesin ER 600 MG TAB PO SCH ×2 (08:29→22:04)
[2018-12-25] MEDS: Cefuroxime Axetil 250 MG TAB PO SCH ×2 (08:29→22:03)
[2018-12-25] MEDS: Preparation H Ointment 28 GM TUBE TOP SCH ×2 (08:29→22:04)
[2018-12-25] MEDS: predniSONE 20 MG TAB PO SCH ×2 (08:29→22:04)
[2018-12-26] MEDS: Mometasone/Formoterol 120 PUFF INHALER INH SCH (07:09)
[2018-12-26] MEDS: Aspirin 81 mg Enteric Coated Tablet PO SCH (10:16)
[2018-12-26] MEDS: predniSONE 20 MG TAB PO SCH (10:16)
[2018-12-26] MEDS: guaiFENesin ER 600 MG TAB PO SCH (10:16)
[2018-12-26] MEDS: Fluticasone Propionate Nasal Spray 16 gm Bottle NASAL SCH (10:17)
[2018-12-26] MEDS: Preparation H Ointment 28 GM TUBE TOP SCH (10:17)
[2018-12-26] MEDS: Amlodipine 5 MG TAB PO SCH (10:22)
[2018-12-26] MEDS: Cefuroxime Axetil 250 MG TAB PO SCH (10:22)
[2018-12-26 19:33] VITALS: BP 118/74; TEMP 97.3
[2018-12-29] MEDS ORDERED: predniSONE 20 MG TAB PO SCH (09:00)
[2019-01-05] MEDS ORDERED: predniSONE 20 MG TAB PO SCH (09:00)
== END 2018-12-26 16:22 | disposition home or self-care (01) | DRG 189 ==
LOC: ERS 16:53 → OBSVTOIN 18:57 → 2SW 18:57 → T4-B 12-22 16:46
PROVIDERS: ADMIT Internal Medicine; ATTEND Internal Medicine
PROC: 5A09357 Assistance with Respiratory Ventilation, Less than 24 Consecutive Hours, Continuous Positive Airway Pressure (ICD-10-PCS; principal; 2018-12-21)
DX: J96.21 Acute and chronic respiratory failure with hypoxia (principal); J43.9 Emphysema, unspecified; I10 Essential (primary) hypertension; Z79.82 Long term (current) use of aspirin; Z79.52 Long term (current) use of systemic steroids; Z88.0 Allergy status to penicillin; Z88.2 Allergy status to sulfonamides; Z88.6 Allergy status to analgesic agent; Z87.01 Personal history of pneumonia (recurrent); Z89.022 Acquired absence of left finger(s); Z89.021 Acquired absence of right finger(s); R73.03 Prediabetes; M54.30 Sciatica, unspecified side; F41.9 Anxiety disorder, unspecified; Z88.5 Allergy status to narcotic agent; Z87.891 Personal history of nicotine dependence; Z88.8 Allergy status to other drugs, medicaments and biological substances; Z79.51 Long term (current) use of inhaled steroids
CPT/HCPCS: 36415; 71045; 80048; 80053; 83880; 84484; 85025; 93005; 94640; 94660; J7620

== ENCOUNTER 2018-12-26 18:07 | Emergency (ER) | payer OTHER ==
[~2018-12-26 18:07] MED LIST: EPINEPHrine 1 MG/10 ML Abboject SYRINGE ONE; Lidocaine 2% PF 100 mg/5 ml Syringe ONE; Magnesium 5 GM/10 ML Abboject SYRINGE ONE
[2018-12-26] MEDS ORDERED: methylPREDNISolone Sod Succ/PF 125 MG/2 ML VIAL ONE (18:16)
[2018-12-26 18:38] LABS: ALT (SGPT) 62 U/L (8-55); AST (SGOT) 34 U/L (5-34); Albumin 2.4 g/dL (3.4-4.8); Alkaline Phosphatase 44 U/L (40-150); Anion Gap 27 mmol/L (10-20); BUN (Urea Nitrogen) 23 mg/dL (8.4-25.7); Bilirubin, Total 0.3 mg/dL (0.2-1.2); Calc. Creatinine Clearance 0 mL/min (70-130); Calcium 7.9 mg/dL (7.8-10.44); Carbon Dioxide 14 mmol/L (23-31); Chloride 104 mmol/L (98-107); Estimated GFR-MDRD 75; Globulin 1.9 g/dL (2.4-3.5); Glucose 276 mg/dL (80-115); Potassium 5.8 mmol/L (3.5-5.1); Protein, Total 4.3 g/dL (5.8-8.1); Sodium 139 mmol/L (136-145)
== END 2018-12-26 18:24 | disposition expired ==
LOC: ERS 18:07
DX: I46.9 Cardiac arrest, cause unspecified (principal); I10 Essential (primary) hypertension; J44.9 Chronic obstructive pulmonary disease, unspecified; F41.9 Anxiety disorder, unspecified; Z87.891 Personal history of nicotine dependence
CPT/HCPCS: 31500; 36415; 80053; 86850; 86900; 86901; 92950; 96374; 96375; J0171; J2001; J2930; J3475